=== PATIENT | male | born 2000 | race African-American/Black ===

== ENCOUNTER 2023-06-29 11:31 | Emergency (ER) | payer BC ==
[~2023-06-29] VITALS: Ht 188 cm; Wt 97.2 kg
[2023-06-29] MEDS: DIPHENHYDRAMINE HCL 25 MG CAP PO ONE (13:30)
[2023-06-29] MEDS: FAMOTIDINE 20 MG TAB PO ONE (13:30)
[2023-06-29] MEDS ORDERED: DIPHENHYDRAMINE HCL 25 MG CAP ONE (13:32)
[2023-06-29] MEDS ORDERED: FAMOTIDINE 20 MG TAB ONE (13:33)
[2023-06-29] MEDS ORDERED: CETIRIZINE HCL10 MG PO (13:36)
[2023-06-29 13:37] VITALS: O2SAT 100
[2023-06-29] MEDS ORDERED: FAMOTIDINE20 MG PO (13:37)
[2023-06-29] MEDS ORDERED: DIPHENHYDRAMINE25 M1 PO (13:38)
[2023-06-29] MEDS ORDERED: CEPHALEXIN500 MG PO (13:40)
== END 2023-06-29 13:47 | disposition home or self-care (01) ==
LOC: FSED 11:40
DX: M25.531 Pain in right wrist (principal); W57.XXXA Bitten or stung by nonvenomous insect and other nonvenomous arthropods, initial encounter; Y92.89 Other specified places as the place of occurrence of the external cause
CPT/HCPCS: 99283